=== PATIENT | male | born 2000 | race Caucasian/White ===

== ENCOUNTER 2024-11-20 22:38 | Observation (INO) | payer OTHER, SELFPAY ==
[2024-11-20 17:29] VITALS: BP 112/60; BMI 25.0
--- NOTE | 2024-11-20 17:44 | ED.GENMED ---
Addendum entered and electronically signed by Esteban Eldridge DO 11/20/24 21:45:
[facility]
[address] [place] [address]
[place] [address]

Patient Name: TEODORA MILIAN
Unit Number: [id number]
Patient
: 2000
Age: 23
Gender: M
Care Provider:
Room/Bed:
Location: EMR
Medical Records
Draft
History of Present Illness
General
Chief Complaint: Seizure
Time Seen by Provider: 11/20/24 17:28
Course
Orders/Labs/Results
Orders:
Orders
11/20/24 17:35
Electrocardiogram (*1) Urgent
Reason for Study: QTc Monitoring
EKG- Treatment ONCE
11/20/24 17:47
Complete Blood Count/With Diff Urgent
Comprehensive Metabolic Panel Urgent
Magnesium Urgent
11/20/24 18:45
CT Head W/o Iv Contrast Urgent
Comment:
Reason For Exam: SEIZURE
Abnormal Lab Results
11/20/24
17:47
RBC 4.48 L 10^6/uL
(4.70-6.10)
Hct 38.2 L %
(39.0-52.0)
Abs Immat Gran (auto) 0.1 H 10^3/uL
(0-0.05)
Immature Gran % 1.0 H %
(0-0.5)
Magnesium 2.4 H mg/dl
(1.6-2.3)
11/20/24 17:47
11/20/24 17:47
Vital Signs
Initial and Last Documented VS:
Initial Vital Signs
Temp Pulse Resp BP Pulse Ox
97.6 F 85 21 112/60 99
11/20/24 17:29 11/20/24 17:29 11/20/24 17:29 11/20/24 17:29 11/20/24 17:29
Last Documented Vital Signs
Temp Pulse Resp BP Pulse Ox
97.6 F 89 20 112/60 99
11/20/24 17:29 11/20/24 20:30 11/20/24 20:30 11/20/24 17:29 11/20/24 19:30
Update Note
Update Note:
9 PM, summary, workup noted here back to his baseline I do suspect he had a seizure perhaps from recent lorazepam use, no longer followed by [facility] neurology reviewed inpatient versus outpatient follow-up, child needs to go back on Ativan for dental
procedures, family also has a trip planned coming up, at this point I believe be prudent keep in the hospital asked neuro to see him in the morning consider EEG, monitor for any recurrent seizures
Original Note:
History of Present Illness
General
Chief Complaint: Seizure
Source: patient, family and ambulance crew
Exam Limitations: non verbal-adult, altered mental status and developmental stage
Time Seen by Provider: 11/20/24 17:28
Nursing documentation reviewed up to this point in time: agreed with
History of Present Illness
History of Present Illness:
23-year-old male history of autism seizures as a child, none recently for for past 3 weeks has had multiple doses of Ativan 2 mg for dental work has also been on Zithromax for an infection which is chronic and Zofran, today dad heard a heard a
noise, child was in his bed dad lowered him to the ground child was seizing for a day or 2 EMS found him postictal, blood sugar of 200 mom states he is a little bit off from his baseline but does not typically communicate a lot, does have a bite on
the right side of his tongue no bowel or bladder incontinence
Phy Exam
Physical Exam
Physical Exam:
Physical Exam
General: Postictal special-needs male
Neck: Tongue bite on the right
Heart: s1/s2 regular rate and rhythm, no murmur. equal radial pulses.
Lungs: no acute respiratory distress. clear bilaterally
Abdomen: Nontender
Neuro: Nonverbal moves all extremities
Skin: no rash
Psychiatric: Cooperative
Extremities: no edema.
Course
Orders/Labs/Results
Orders:
Orders
11/20/24 17:35
Electrocardiogram (*1) Urgent
Reason for Study: QTc Monitoring
CT Head W/o Iv Contrast Urgent
Comment:
Reason For Exam: SEIZURE
EKG- Treatment ONCE
11/20/24 17:39
CT Cervical Spine W/o Iv Contr Urgent
Comment:
Reason For Exam: FALL
11/20/24 17:47
Complete Blood Count/With Diff Urgent
Comprehensive Metabolic Panel Urgent
Magnesium Urgent
Abnormal Lab Results
11/20/24
17:47
RBC 4.48 L 10^6/uL
(4.70-6.10)
Hct 38.2 L %
(39.0-52.0)
Abs Immat Gran (auto) 0.1 H 10^3/uL
(0-0.05)
Immature Gran % 1.0 H %
(0-0.5)
Magnesium 2.4 H mg/dl
(1.6-2.3)
11/20/24 17:47
11/20/24 17:47
Vital Signs
Initial and Last Documented VS:
Initial Vital Signs
Temp Pulse Resp BP Pulse Ox
97.6 F 85 21 112/60 99
11/20/24 17:29 11/20/24 17:29 11/20/24 17:29 11/20/24 17:29 11/20/24 17:29
Last Documented Vital Signs
Temp Pulse Resp BP Pulse Ox
97.6 F 85 21 112/60 99
11/20/24 17:29 11/20/24 17:29 11/20/24 17:29 11/20/24 17:29 11/20/24 17:29
MDM/Problems Addressed
Differential Diagnosis Includes:
Sounds like a seizure, could be due to epilepsy, benzo withdrawal, arrhythmia, perhaps Zofran and Zithromax
MDM/Problems Addressed:
Seizure
Chronic conditions affecting care:
Autism
Ativan use
*Radiology
Radiology exam reviewed: preliminary read by ED provider
*Pulse Oximetry
Patient hypoxic: no
*Critical Care Note
Total Time (30-74mins, 75-104mins- exclusive of procedures): Not Applicable
Update Note
Update Note:
6:25 PM patient resting comfortably history confirms her father who witnessed the episode sounds like a seizure, there is no direct trauma he was placed down the bed advised that, will cancel CT cervical spine
Child did have a suspected seizure earlier in life underwent EEGs and MRI not on antiepileptics
ED Attending Note
-
Portions of this chart may have been created with voice recognition software.� Occasional wrong word or��sound alike� substitutions may have occurred due to the inherent limitations of voice recognition software.
Discharge Plan
Interventions
Interventions:
*Risk Screen - Suicide Last Done: 11/20/24 17:29
*General Assessment Last Done: 11/20/24 17:29
*Neglect/Abuse Screening Last Done: 11/20/24 17:29
*ED- Fall Risk Assessment Last Done: 11/20/24 17:29
*ED COVID-19 Vaccine History Last Done: 11/20/24 17:29
Discharge Date and Time
Print Language: SETSWANA
[2024-11-20 17:57] LABS: % Basophils 0.3 % (0-2); % Eosinophils 1.3 % (0-6); % Lymphocytes 30.4 % (20.5-51.1); % Monocytes 7.3 % (1.7-9.3); % Neutrophils 59.7 % (42.2-75.2); Absolute Eosinophils 0.1 10^3/uL (0-0.7); Absolute Immature Granulocytes 0.1 10^3/uL (0-0.05); Absolute Lymphocytes 2.1 10^3/uL (1.2-3.4); Absolute Monocytes 0.5 10^3/uL (0.1-0.6); Absolute Neutrophils 4.1 10^3/uL (1.4-6.5); Hematocrit 38.2 % (39.0-52.0); Hemoglobin 13.7 g/dL (13.0-18.0); Mean Corp Hgb Conc. 35.9 g/dL (33.0-37.0); Mean Corpuscular Hgb 30.6 pg (27.0-31.0); Mean Corpuscular Volume 85.3 fL (80.0-94.0); Mean Platelet Volume 9.9 fL (7.4-10.4); Nucleated Red Blood Cells % 0 % (-); Platelet Count 141 10^3/uL (130-400); Red Blood Cell Count 4.48 10^6/uL (4.70-6.10); Red Cell Dist. Width 11.9 % (11.5-14.5); White Blood Cell Count 6.9 10^3/uL (4.8-10.8)
[2024-11-20 18:23] LABS: ALT (SGPT) 24 U/L (0-50); AST (SGOT) 27 U/L (17-59); Albumin 4.9 g/dl (3.5-5.0); Alkaline Phosphatase 94 U/L (38-126); Blood Urea Nitrogen 15 mg/dl (9-20); Calcium 9.7 mg/dl (8.4-10.2); Carbon Dioxide 27 mmol/L (22-30); Chloride 102 mmol/L (98-107); Estimated Creatinine Clearance > 125 ml/min; Glucose 79 mg/dl (70-99); Magnesium 2.4 mg/dl (1.6-2.3); Potassium 3.8 mmol/L (3.5-5.1); Sodium 141 mmol/L (135-145); Total Bilirubin 0.4 mg/dl (0.2-1.3); eGFR > 60.00
--- NOTE | 2024-11-20 20:56 | ED.GENMED ---
History of Present Illness
General
Chief Complaint: Seizure
Time Seen by Provider: 11/20/24 17:28
Course
Orders/Labs/Results
Orders:
Orders
11/20/24 17:35
Electrocardiogram (*1) Urgent
Reason for Study: QTc Monitoring
EKG- Treatment ONCE
11/20/24 17:47
Complete Blood Count/With Diff Urgent
Comprehensive Metabolic Panel Urgent
Magnesium Urgent
11/20/24 18:45
CT Head W/o Iv Contrast Urgent
Comment:
Reason For Exam: SEIZURE
Abnormal Lab Results
11/20/24
17:47
RBC 4.48 L 10^6/uL
(4.70-6.10)
Hct 38.2 L %
(39.0-52.0)
Abs Immat Gran (auto) 0.1 H 10^3/uL
(0-0.05)
Immature Gran % 1.0 H %
(0-0.5)
Magnesium 2.4 H mg/dl
(1.6-2.3)
11/20/24 17:47
11/20/24 17:47
Vital Signs
Initial and Last Documented VS:
Initial Vital Signs
Temp Pulse Resp BP Pulse Ox
97.6 F 85 21 112/60 99
11/20/24 17:29 11/20/24 17:29 11/20/24 17:29 11/20/24 17:29 11/20/24 17:29
Last Documented Vital Signs
Temp Pulse Resp BP Pulse Ox
97.6 F 89 20 112/60 99
11/20/24 17:29 11/20/24 20:30 11/20/24 20:30 11/20/24 17:29 11/20/24 19:30
Update Note
Update Note:
9 PM, summary, workup noted here back to his baseline I do suspect he had a seizure perhaps from recent lorazepam use, no longer followed by [facility] neurology reviewed inpatient versus outpatient follow-up, child needs to go back on Ativan for dental
procedures, family also has a trip planned coming up, at this point I believe be prudent keep in the hospital asked neuro to see him in the morning consider EEG, monitor for any recurrent seizures
ED Attending Note
-
Portions of this chart may have been created with voice recognition software.� Occasional wrong word or��sound alike� substitutions may have occurred due to the inherent limitations of voice recognition software.
Discharge Plan
Departure
Patient Disposition: Admit
Date of Disposition: 11/20/24
Time of Disposition: 20:57
Presentation/result/management discussed w/ accepting MD/DO: Hospitalist
Patient with high blood pressure during this ER visit?: No
Condition: Good
Discharge Problem:
Seizure
Referrals:
Boone Campoverde DO [Family Provider] -
Interventions
Interventions:
*Risk Screen - Suicide Last Done: 11/20/24 17:29
*General Assessment Last Done: 11/20/24 17:29
*Neglect/Abuse Screening Last Done: 11/20/24 17:29
*ED- Fall Risk Assessment Last Done: 11/20/24 17:29
*ED COVID-19 Vaccine History Last Done: 11/20/24 17:29
ED- Cardiac Assessment Last Done: 11/20/24 17:30
ED- Neurological Assessment Last Done: 11/20/24 17:30
ED- Pulmonary Assessment Last Done: 11/20/24 17:30
Discharge Date and Time
Print Language: CHADIAN
[2024-11-20 21:21] VITALS: BP 121/77
--- NOTE | 2024-11-20 22:25 | HPS.HSE ---
Family Physician
-
Family Physician: Boone Campoverde
Chief Complaint
-
Seizure activity
History of Present Illness
Patient is a 23y M with PMH significant for non-verbal autism with catatonia who presents to ED for evaluation after witnessed seizure activity at home. History obtained from parents at the bedside. Patient has reportedly been feeling fairly
well of late. had a usual Friday today including going to the gym, out to breakfast, etc. This afternoon, patient went up to his room and his father heard him cry out. Father went upstairs and found patient on his bed appearing rigid / shaking
with drool / emesis from the corner of his mouth. Father lowered the patient to the floor / onto his side. There was no fall / injury / trauma. EMS was called. Father states that the initial episodes lasted about 1-2 minutes. Patient gradually
became more alert while en route to the hospital. Here in the ED, family states that he seems at baseline.
Patient had an isolated episode of questionable seizure when he was 7yo.
He was later evaluated for eyelid fluttering, etc and as briefly on AEDs for suspected seizure activity. This was later diagnosed as autism-related catatonia.
Patient was treated for this condition with Ativan x 3 years before being weaned off. He has not been on regular Ativan dosing for at least 2 years.
Patient has had EEGs done in the past - most recently in 2019. These were all reportedly unremarkable.
Over the past 3 weeks, patient has required significant dental work. He has been given Ativan prior to these appointments - 2mg dose at a time.
He has received 5 doses in the past 3 weeks - most recent doses were last Friday, this Friday and this Friday.
Parents note that they also added N-acetylcysteine to his supplement regimen (about 3 days ago). No other new medications.
Medical History
Past Medical History
Past Medical History: Reports Other
Additional Past Medical History:
Non-Verbal Autism with Catatonia
Past Surgical History: Reports Other
Additional Past Surgical History:
Dental procedures - no other surgeries
Social History
Tobacco: Non-smoker
Alcohol: None
Drug: None
Living: With Family
Family History
Family History: Not pertinent
Allergies / Home Medications
Allergies reflects when Allergies were last updated in [facility]
Home Medications with original date entered in [facility]
Allergy/Medication List:
Allergies
Allergy/AdvReac Type Severity Reaction Status Date / Time
gluten Allergy Unknown Verified 11/20/24 17:45
Milk Containing Products Allergy Unknown Verified 11/20/24 17:45
(Dairy)
Home Medications
Lactobacillus acidophilus-Bifidobac.animalis 2.5 billion cell capsule (Daily Probiotic) 1 cap PO BID 11/20/24
acetylcysteine 600 mg capsule 600 mg PO DAILY 11/20/24
ascorbic acid (vitamin C) 1,000 mg tablet (Vitamin C) 1 g PO DAILY 11/20/24
ascorbic acid (vitamin C) 500 mg tablet (Vitamin C) 500 mg PO DAILY 11/20/24
atovaquone 250 mg-proguanil 100 mg tablet (Malarone) 2 tab PO DAILY 11/20/24
azithromycin 250 mg tablet 250 mg PO DAILY 11/20/24
cholecalciferol (vitamin D3) 125 mcg (5,000 unit) tablet (Vitamin D3) 5,000 unit PO DAILY 11/20/24
curcumin-phosphatidylcholine 500 mg capsule 500 mg PO DAILY 11/20/24
lorazepam 1 mg tablet (Ativan) 1 mg PO PRN PRN dental procedure 11/20/24
lysine 500 mg tablet (L-Lysine) 500 mg PO DAILY 11/20/24
magnesium citrate 100 mg capsule 100 mg PO DAILY 11/20/24
magnesium glycinate 100 mg PO DAILY 11/20/24
melatonin 1 mg tablet 1 mg PO HS 11/20/24
minerals 1 tab PO BID 11/20/24
multivitamin 1 tab PO BID 11/20/24
naltrexone 4.5 mg capsule 4.5 mg PO DAILY 11/20/24
sennosides 8.6 mg tablet (senna) 8.6 mg PO DAILY PRN constipation 11/20/24
sertraline 50 mg tablet (Zoloft) 75 mg PO DAILY 11/20/24
Review of Systems
-
History Source: Family
A 12 point ROS was completed and negative except as noted: Yes
Constitutional: Reports Fatigue; Denies Fever or Chills
Respiratory: Denies Cough or Trouble Breathing
Cardiac: Denies Chest Pain or Palpitations
Abdomen/GI: Denies Abdominal Pain, Nausea, Vomiting or Diarrhea
: Denies Flank Pain or Bleeding
Musculoskeletal: Denies Joint Pain or Edema
Neurological: Reports Other (Seizure activity); Denies Dizzy or Headache
Physical Exam
Vital Signs
Vital Signs
Temp Pulse Resp BP Pulse Ox
98.4 F 85 15 121/77 99
11/20/24 21:21 11/20/24 21:21 11/20/24 21:21 11/20/24 21:21 11/20/24 21:21
Physical Exam
General: Other (23y M resting comfortably in no distress.)
HEENT: Moist mucous membranes and PERRLA
Respiratory: Clear; No Wheezes, Rales or Rhonchi
Cardiac: S1/S2 and Regular Rhythm; No Murmur
GI: Soft, Non Tender, Non Distended and Normal Bowel Sounds
Musculoskeletal: No Edema
Neuro: Awake, Alert and Nonfocal/grossly intact
Laboratory Results
-
11/20/24 17:47
11/20/24 17:47
Laboratory Results
Total Bilirubin 0.4 mg/dl (0.2-1.3) 11/20/24 17:47
AST 27 U/L (17-59) 11/20/24 17:47
ALT 24 U/L (0-50) 11/20/24 17:47
Alkaline Phosphatase 94 U/L (38-126) 11/20/24 17:47
Impression/Plan
-
A/P: Patient is a 23y M with PMH significant for autism with catatonia who presents to ED for evaluation of witnessed seizure-like activity.
Seizure Activity
Non-Verbal Autism with Catatonia
- Observe overnight for further evaluation and treatment.
- Monitor for any new / recurrent symptoms.
- Ativan IV PRN for any recurrent seizures.
- Neuro evaluation for additional recommendations.
- EEG in AM.
- Likely multifactorial - ? few doses of Ativan in the past 3 weeks would be enough alone to elicit 'withdrawal' - especially with prior history of 3 years of chronic therapy and no issues at that time.
- On multiple supplements as well as Azithro / Malarone - newest supplement NAC. Will hold all acutely.
DVT Prophylaxis: SCDs
Code Status: Full
[2024-11-20 23:30] VITALS: BP 119/77; BMI 24.0
--- NOTE | 2024-11-21 01:12 | PTCARENOTE ---
11/20 at 2333- Received patient from ED via stretcher with mother at bedside; Patient admitted for seizure activity, observation services.
Telemetry order> NSR on monitor, strip placed in chart. VSS afebrile, HR 62, RR 18, BP 119/77, pox 97% room air. #20 LAC IV intact. Gait steady.
Patient Non- Verbal Autism (w/ Catatonia) Seizure precautions in place. Neuro checks ordered Q4H- refer to worklist. Medications and plan of care reviewed by this RN and mother. Plan for EEG in AM. Both parents will be staying overnight. Linens and
pillows provided. Call weeks within reach.
[2024-11-21 03:49] VITALS: BP 119/64
[2024-11-21 07:05] VITALS: BP 113/65
[2024-11-21 07:54] LABS: Blood Urea Nitrogen 13 mg/dl (9-20); Calcium 9.6 mg/dl (8.4-10.2); Carbon Dioxide 28 mmol/L (22-30); Chloride 106 mmol/L (98-107); Estimated Creatinine Clearance > 125 ml/min; Glucose 88 mg/dl (70-99); Sodium 143 mmol/L (135-145); eGFR > 60.00
--- NOTE | 2024-11-21 08:14 | CON.NEURO ---
Consultation
Order
Date of Consultation: 11/21/24
Requesting Provider: Matthew Gordon DO
Reason for Consult: Seizure
Neurology Consultation Note.
HPI: This is a 23-year-old man who presented to [facility] on seizure 11/20/2024 with a spell.
The event occurred around 3:30-4:00 PM after the patient had returned from his usual gym routine and breakfast. The patient was found in his bed with his head back arching, eyes open, and drooling. The episode lasted approximately one minute. There
was no reported cyanosis, pallor. The patient had no recent illness, fever, or other symptoms prior to the event.
The patient has a history of a questionable seizure at age 7 while at school, which prompted an EEG and MRI workup at that time. No antiepileptic medications were prescribed following that incident. Since 2018, the patient has experienced a
progressive slowdown in his movements and activities, with concerns about weight loss and prolonged task completion arising in 2019. He began seeing neurologists at this time, with initial suspicions of seizures. EEG studies were done and reportedly
unremarkable. The patient was briefly treated with Depakote but was later weaned off.
The patient has been experiencing recurrent eye flutter episodes. These episodes initially 'improved with doxycycline' treatment for Lyme disease but have since recurred with increasing frequency.
The patient was diagnosed with catatonia in 2019 and was treated with Ativan for 3.5 years, which was slowly tapered over 1.5 years.
At baseline Rick is not fluent, can perform basic self-care tasks with prompting and 'moves slowly'.
ER VS: 112/60, 89, afebrile.
EKG:pending
PDMP:none in [place]
Labs: Normal sodium, creatinine, CBC, magnesium�2.4.
CT head wo contrast�unremarkable
MAR: none
PMH: autistic catatonia, vitiligo, allergic rhinitis, JUAN, vitamin D deficiency, babesiosis is on azithromycin and Atovaquone -proguanil( following with a functional medicine)
SH: Lives with family, independent in ambulation
FH: Paternal cousin has autism
All: Gluten
ROS: Unable due to encephalopathy
General: Well developed. In no acute distress.
Cardio: Regular rate and rhythm without murmur. Extremities are without cyanosis or edema.
Neuro:
Mental Status: Awake, no eye contact. Oriented to name. (Reportedly able to read, write). Follows simple requests with prompting intermittently. High-pitched voice.
Cranial Nerves: Orthophoric primary gaze pupils are equally round and reactive to light. Horizontal EOMs full. Blinks to threat bilaterally. No facial weakness.
Motor: Normal motor tone. All limbs antigravity
Reflexes: Negative grasp, no hyperreflexia
Sensory: Was not done
Coordination: No tremors myoclonic movements
Gait: Normal stance, base
Assessment and Plan:
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
II. Regressive autism
III. History of catatonia
-Seizure precautions
-Avoid medications known to lower seizure threshold
-Please check TFTs, CK, urine tox
-Continue Keppra 500 mg twice daily
-Brain MRI without juan (epilepsy protocol)
-Routine EEG (can be done as outpatient)
I personally reviewed all radiology and labs along with past medical records pertinent to current medical problems. Total time spent in patient care is 60 minutes.
Thank you for allowing us to participate in the care of this patient. We will continue to follow. Please do not hesitate to contact us with any questions or concerns.
Subjective/Objective
Subjective Data
Date of Service: November 21, 2024
Objective Data
Vital Signs
Temp Pulse Resp BP Pulse Ox
36.8 C 61 16 119/64 97
11/21/24 03:49 11/21/24 03:49 11/21/24 03:49 11/21/24 03:49 11/21/24 03:49
Lab Results
11/20/24 17:47
11/21/24 06:59
Sodium 143 mmol/L (135-145) 11/21/24 06:59
Potassium 4.0 mmol/L (3.5-5.1) 11/21/24 06:59
BUN 13 mg/dl (9-20) 11/21/24 06:59
Glucose 88 mg/dl (70-99) 11/21/24 06:59
Calcium 9.6 mg/dl (8.4-10.2) 11/21/24 06:59
Patient Allergies
gluten Allergy (Verified 11/20/24 17:45)
Unknown
Milk Containing Products (Dairy) Allergy (Verified 11/20/24 17:45)
Unknown
Medications
-
Active Medications
Generic Name Dose Route Start Last Admin
Trade Name Freq PRN Reason Stop Dose Admin
Acetaminophen 650 mg 11/20/24 23:34
Acetaminophen 325 Mg Tablet PO 12/18/24 23:33
Q4HPRN PRN
Mild Pain / Temp > 101
Lorazepam 2 mg 11/20/24 23:34
Lorazepam 2 Mg/Ml Vial IV 12/18/24 23:33
Q4HPRN PRN
Seizure activity
Sodium Chloride 1 ml 11/20/24 23:44
Nss (Pf) 10 Ml Vial For Ativan 2 Mg Dose IV 12/18/24 23:43
Q4HPRN PRN
IV LORAZEPAM DILUTION
Home Medications
�Medication �Instructions �Recorded
Lactobacillus 1 cap PO BID 11/20/24
acidophilus-Bifidobac.animalis 2.5
billion cell capsule (Daily
Probiotic)
acetylcysteine 600 mg capsule 600 mg PO DAILY 11/20/24
ascorbic acid (vitamin C) 1,000 mg 1 g PO DAILY 11/20/24
tablet (Vitamin C)
ascorbic acid (vitamin C) 500 mg 500 mg PO DAILY 11/20/24
tablet (Vitamin C)
atovaquone 250 mg-proguanil 100 mg 2 tab PO DAILY 11/20/24
tablet (Malarone)
azithromycin 250 mg tablet 250 mg PO DAILY 11/20/24
cholecalciferol (vitamin D3) 125 5,000 unit PO DAILY 11/20/24
mcg (5,000 unit) tablet (Vitamin
D3)
curcumin-phosphatidylcholine 500 500 mg PO DAILY 11/20/24
mg capsule
lorazepam 1 mg tablet (Ativan) 1 mg PO PRN PRN dental procedure 11/20/24
lysine 500 mg tablet (L-Lysine) 500 mg PO DAILY 11/20/24
magnesium citrate 100 mg capsule 100 mg PO DAILY 11/20/24
magnesium glycinate 100 mg PO DAILY 11/20/24
melatonin 1 mg tablet 1 mg PO HS 11/20/24
minerals 1 tab PO BID 11/20/24
multivitamin 1 tab PO BID 11/20/24
naltrexone 4.5 mg capsule 4.5 mg PO DAILY 11/20/24
sennosides 8.6 mg tablet (senna) 8.6 mg PO DAILY PRN constipation 11/20/24
sertraline 50 mg tablet (Zoloft) 75 mg PO DAILY 11/20/24
Vital Signs and Labs
-
Vital Signs and Labs:
Vital Signs
Temp Pulse Resp BP Pulse Ox
36.8 C 61 16 119/64 97
11/21/24 03:49 11/21/24 03:49 11/21/24 03:49 11/21/24 03:49 11/21/24 03:49
Lab Results
11/20/24 17:47
11/21/24 06:59
Sodium 143 mmol/L (135-145) 11/21/24 06:59
Potassium 4.0 mmol/L (3.5-5.1) 11/21/24 06:59
BUN 13 mg/dl (9-20) 11/21/24 06:59
Glucose 88 mg/dl (70-99) 11/21/24 06:59
Calcium 9.6 mg/dl (8.4-10.2) 11/21/24 06:59
Medications
-
Medications:
Generic Name Dose Route Start Last Admin
Trade Name Freq PRN Reason Stop Dose Admin
Acetaminophen 650 mg 11/20/24 23:34
Acetaminophen 325 Mg Tablet PO 12/18/24 23:33
Q4HPRN PRN
Mild Pain / Temp > 101
Lorazepam 2 mg 11/20/24 23:34
Lorazepam 2 Mg/Ml Vial IV 12/18/24 23:33
Q4HPRN PRN
Seizure activity
Sodium Chloride 1 ml 11/20/24 23:44
Nss (Pf) 10 Ml Vial For Ativan 2 Mg Dose IV 12/18/24 23:43
Q4HPRN PRN
IV LORAZEPAM DILUTION
Home Medications
-
Home Medications
Lactobacillus acidophilus-Bifidobac.animalis 2.5 billion cell capsule (Daily Probiotic) 1 cap PO BID 11/20/24
acetylcysteine 600 mg capsule 600 mg PO DAILY 11/20/24
ascorbic acid (vitamin C) 1,000 mg tablet (Vitamin C) 1 g PO DAILY 11/20/24
ascorbic acid (vitamin C) 500 mg tablet (Vitamin C) 500 mg PO DAILY 11/20/24
atovaquone 250 mg-proguanil 100 mg tablet (Malarone) 2 tab PO DAILY 11/20/24
azithromycin 250 mg tablet 250 mg PO DAILY 11/20/24
cholecalciferol (vitamin D3) 125 mcg (5,000 unit) tablet (Vitamin D3) 5,000 unit PO DAILY 11/20/24
curcumin-phosphatidylcholine 500 mg capsule 500 mg PO DAILY 11/20/24
lorazepam 1 mg tablet (Ativan) 1 mg PO PRN PRN dental procedure 04/05/25
lysine 500 mg tablet (L-Lysine) 500 mg PO DAILY 11/20/24
magnesium citrate 100 mg capsule 100 mg PO DAILY 11/20/24
magnesium glycinate 100 mg PO DAILY 11/20/24
melatonin 1 mg tablet 1 mg PO HS 11/20/24
minerals 1 tab PO BID 11/20/24
multivitamin 1 tab PO BID 11/20/24
naltrexone 4.5 mg capsule 4.5 mg PO DAILY 11/20/24
sennosides 8.6 mg tablet (senna) 8.6 mg PO DAILY PRN constipation 11/20/24
sertraline 50 mg tablet (Zoloft) 75 mg PO DAILY 11/20/24
--- NOTE | 2024-11-21 08:16 | W.PN.HOSP.TC ---
Today's Communication/Plan
-
see bold
Assessment / Plan
Assessment / Plan
23y M with PMH significant for autism with catatonia who presents to ED for evaluation of witnessed seizure-like activity.
Gen: NAD, awake and alert
Eyes: EOMI, PERRLA, no scleral icterus.
Neck: supple.
CV: RRR, +S1/S2, no m/r/g.
Resp: CTAB, no rales, wheezes, or rhonchi.
Abd: +BS, soft, NT, ND
Skin: No rashes.
Neuro: CN 2-12 intact, non-focal.
Psych: flat affect
Seizure Activity
Non-Verbal Autism with Catatonia
-Recent dental work with multiple doses of Ativan which could potentially elicit benzodiazepine withdrawal. Also on multiple supplements as well as Azithro/Malarone. NAC is most recent supplement which is on hold.
-Overall, I recommend that the patient stop all of the supplements going forward
-neuro c/s, case discussed with neuro
-Ativan IV PRN for any recurrent seizures.
-check EEG/MRI brain
-start Keppra 500mg IV Q12H
Patient's parents updated at bedside.
FULL/SCDs
Anticipated Discharge: Within 24 hours
Subjective/Interval History
-
Date of Service: November 21, 2024
Patient gives a thumbs up when asked how he is feeling.
Objective Data
-
Labs:
Laboratory Results
11/21/24
06:59
Sodium 143
Potassium 4.0
Chloride 106
Carbon Dioxide 28
BUN 13
Creatinine 0.7
Glucose 88
Calcium 9.6
Vital Signs:
Vital Signs
Temp Pulse Resp BP Pulse Ox
98.2 F 61 16 119/64 97
11/21/24 03:49 11/21/24 03:49 11/21/24 03:49 11/21/24 03:49 11/21/24 03:49
I&O
11/20/24 11/21/24 11/22/24
06:59 06:59 06:59
Intake Total 480 / 480
Balance 480 / 480
[2024-11-21 08:22] LABS: TSH Reflex To Free T4 0.36 uIU/ml (0.47-4.68)
[2024-11-21 08:50] LABS: Free T4 0.97 ng/dl (0.78-2.19)
[2024-11-21] MEDS: ZOLOFT 75 MG PO (10:34)
[2024-11-21] MEDS: KEPPRA 500 MG IV ×2 (10:35→20:56)
[2024-11-21 11:05] VITALS: BP 108/73
--- NOTE | 2024-11-21 13:21 | CM ---
Patient seen at bedside with father also present. Patient sleeping. Patient father indicated that he did not want CM to wake patient. Patient father indicated mother had gone home for clothing. CM reviewed OBS form and provided patient father with
copies to review with patient mother. Patient lives in a 2 story home with no DME. Normally patient walks independently. Patient PCP is Dr. Orozco and they use the [facility]. Patient father stated they have been working to start the
community waiver and that patient was approved for 12 hours a week, they hope to start the program in approx 2 weeks. Patient family plan is for patient to go home with no needs at this time vs home with VN. CM will continue to follow for discharge
planning needs.
Plan;home with no needs vs home with VN
[2024-11-21 15:05] VITALS: BP 101/69
[2024-11-21 16:15] LABS: Amphetamines Negative (Negative); Barbiturates Negative (Negative); Benzodiazepines Negative (Negative); Buprenorphine Negative (Negative); Cocaine Negative (Negative); Marijuana Negative (Negative); Methadone Negative (Negative); Methamphetamines Negative (Negative); Opiates Negative (Negative); Phencyclidine Negative (Negative); Tricyclic Antidepressants Negative (Negative)
--- NOTE | 2024-11-21 17:38 | PTCARENOTE ---
Patient with no seizure activity noted this shift, ambulatory in room/OOB to chair with assistance of parents at bedside. Neuro checks WNL, patient nonverbal with catatonia at baseline. Parents given printout of AM labs and educational packet on
Keppra for seizure prevention. AM labs and urine tox screen ordered per neuro. Patient for EEG in AM, parents updated on plan of care.
[2024-11-21 19:54] VITALS: BP 118/75
[2024-11-21 22:52] VITALS: BP 111/69
[2024-11-22 03:10] VITALS: BP 105/65
--- NOTE | 2024-11-22 07:18 | W.PN.HOSP.TC ---
Today's Communication/Plan
-
d/c
Assessment / Plan
Assessment / Plan
23y M with PMH significant for autism with catatonia who presents to ED for evaluation of witnessed seizure-like activity.
Gen: NAD, awake and alert
Eyes: EOMI, PERRLA, no scleral icterus.
Neck: supple.
CV: RRR, +S1/S2, no m/r/g.
Resp: CTAB, no rales, wheezes, or rhonchi.
Abd: +BS, soft, NT, ND
Skin: No rashes.
Neuro: CN 2-12 intact, non-focal.
Psych: flat affect
MRI brain: No acute intracranial abnormality noted.
Seizure Activity
Non-Verbal Autism with Catatonia
-Recent dental work with multiple doses of Ativan which could potentially elicit benzodiazepine withdrawal. Also on multiple supplements as well as Azithro/Malarone. NAC is most recent supplement which is on hold.
-Overall, I recommend that the patient stop all of the supplements going forward
-neuro following
-Ativan IV PRN for any recurrent seizures
-EEG brain can be cone outpt
-cont Keppra 500mg IV Q12H (convert PO on d/c)
Patient's parents updated extensively at bedside.
FULL/SCDs
Total time spent on d/c = 31 min. This included today's physical exam, progress note, review of laboratory and diagnostic data, preparation of discharge documents and prescriptions, and discussions about the pt's hospital course and discharge plan
with the patient and other medical collections representative involved in the patient's care.
Anticipated Discharge: Today
Subjective/Interval History
-
Date of Service: November 22, 2024
Patient gives a thumbs up this morning (nonverbal).
Objective Data
-
Vital Signs:
Vital Signs
Temp Pulse Resp BP Pulse Ox
98.0 F 68 16 105/65 97
11/22/24 03:10 11/22/24 03:10 11/22/24 03:10 11/22/24 03:10 11/22/24 03:10
I&O
11/21/24 11/22/24 11/23/24
06:59 06:59 06:59
Intake Total 480 / 480 1760 / 1760
Output Total 250 / 250
Balance 480 / 480 1510 / 1510
[2024-11-22 07:30] VITALS: BP 99/59
[2024-11-22] MEDS: ZOLOFT 75 MG PO (08:24)
[2024-11-22] MEDS: KEPPRA 500 MG IV (08:25)
[2024-11-22 08:55] LABS: Free T3 4.12 pg/ml (2.77-5.27)
--- NOTE | 2024-11-22 09:09 | CM ---
CM spoke with patient's mother via phone; VN offered; mother declined; father will transport patient home
Plan: Discharge to home, no needs
--- NOTE | 2024-11-22 13:03 | W.DCSUMMARY ---
Discharge Summary
Discharge Data
Date of Admission: 11/20/24
Date of Discharge: 11/22/24
-
Pending Results: No
Hospital Course
Primary diagnoses:
Seizure
Secondary diagnoses:
Non-Verbal Autism with Catatonia
Consultants:
Neurology
Imaging:
MRI brain: No acute intracranial abnormality noted.
Hospital course: 23-year-old male who presented with seizure activity as outlined in the H&P done on admission. The patient had had recent dental work with multiple doses of Ativan which could potentially elicit benzodiazepine withdrawal. He was
also on multiple supplements as well as Azithro/Malarone. NAC was the most recent supplement added. His supplements were placed on hold. He was seen in consultation by neurology. He was initiated on Keppra. His MRI of the brain was unremarkable
as above. He will need an EEG after discharge. He will continue on Keppra on discharge. Overall, I recommend that the patient stop all of the supplements going forward.
Discharge Plan
-
Patient Disposition: Home (Routine Discharge)
Discharge Diagnosis/Procedures: Seizure
Condition: Good
Diet: No restrictions
Activity: Other activity
Additional Activity: as prior to admission
Driving Restrictions: No driving
Referrals:
Danni Gunderson MD [Active] - in four to six weeks (seizure)
Boone Campoverde DO [Family Provider] - in less than 1 week
Prescriptions:
New
levetiracetam [Keppra] 500 mg tablet
500 mg PO BID Qty: 60 0RF
Continued
multivitamin Tablet
1 tab PO BID
sennosides [senna] 8.6 mg Tablet
8.6 mg PO DAILY PRN (Reason: constipation)
ascorbic acid (vitamin C) [Vitamin C] 1,000 mg Tablet
1 g PO DAILY
Rx Instructions:
afternoon
ascorbic acid (vitamin C) [Vitamin C] 500 mg Tablet
500 mg PO DAILY
Rx Instructions:
morning
lorazepam [Ativan] 1 mg Tablet
1 mg PO PRN PRN (Reason: dental procedure)
Rx Instructions:
Patient took two mg on friday
lysine [L-Lysine] 500 mg Tablet
500 mg PO DAILY
sertraline [Zoloft] 50 mg Tablet
75 mg PO DAILY
minerals Tablet
1 tab PO BID
melatonin 1 mg Tablet
1 mg PO HS
acetylcysteine 600 mg Capsule
600 mg PO DAILY
cholecalciferol (vitamin D3) [Vitamin D3] 125 mcg (5,000 unit) Tablet
5,000 unit PO DAILY
magnesium citrate 100 mg Capsule
100 mg PO DAILY
Daily Probiotic 2.5 billion cell Capsule
1 cap PO BID
magnesium glycinate 100 mg magnesium Capsule
100 mg PO DAILY
curcumin-phosphatidylcholine 500 mg Capsule
500 mg PO DAILY
Discontinued
azithromycin 250 mg Tablet
250 mg PO DAILY
atovaquone-proguanil [Malarone] 250-100 mg Tablet
2 tab PO DAILY
naltrexone 4.5 mg Capsule
4.5 mg PO DAILY
Discharge Orders:
Discharge Patient (As Directed); Ordered 11/22/24
Ordered By: Charlie Sanchez
Discharge Date and Time
Discharge Date/Time: 11/22/24 10:48
Print Language: NAURUAN
== END 2024-11-22 10:48 | disposition home or self-care (01) ==
LOC: 2 NORTH 22:38
PROVIDERS: ADMITTING PHYSICIAN Hospitalist; ATTENDING PHYSICIAN Internal Medicine; CONSULT PHYSICIAN Psychiatry & Neurology Neurology; EMERGENCY PHYSICIAN Emergency Medicine; FAMILY PHYSICIAN Family Medicine
DX: R56.9 Unspecified convulsions (principal); R41.82 Altered mental status, unspecified; F84.0 Autistic disorder; F06.1 Catatonic disorder due to known physiological condition; F41.1 Generalized anxiety disorder; E55.9 Vitamin D deficiency, unspecified; L80 Vitiligo; J30.9 Allergic rhinitis, unspecified; R45.89 Other symptoms and signs involving emotional state; Z79.899 Other long term (current) drug therapy; Z91.02 Food additives allergy status; Z91.011 Allergy to milk products
CPT/HCPCS: 70450; 70551; 80048; 80053; 80306; 83735; 84439; 84443; 84481; 85025; 99285; G0378

== ENCOUNTER → 2025-02-28 11:10 | Outpatient (REF) | payer OTHER, SELFPAY ==
--- NOTE | 2025-03-02 13:59 | EEG.RPT ---
Electroencephalogram Report
Recording
Date of EE02/28/25
Type of EEG: Routine
Length of EEG recordin minutes
Done with Video Recording: Yes
Patient Status: Inpatient
Recording Conditions: Awake, Drowsy and Asleep
Hyperventilation Performed: No
Photic Stimulation Performed: Yes
Report
GREATER THAN 1 HOUR EEG INTERPRETATION:
Unremarkable EEG for age
CLINICAL CORRELATION:
A normal EEG does not rule out a diagnosis of epilepsy. If clinical suspicion for seizure persists, a prolonged recording may be warranted.
Clinical correlation is advised.
METHODS:
A 21 channel digitized electroencephalogram (EEG) was performed using the 10/20 international system of electrode placement and one-lead of ECG recorded. The [employer] quantitative EEG system was utilized.
ELECTROENCEPHALOGRAPHER IMPRESSION(S):
Quality of study
Good
Background
There was an unremarkable anterior-posterior voltage gradient of alpha frequency.
With eye opening the background activity changed to a low voltage mixture of frequencies.
There were no significant asymmetries of background activity noted.
Sleep
Drowsiness present
Stage 1 present
Stage 2 present
Photic Stimulation
No activation
ECG
Normal sinus rhythm
== END ==
LOC: EEG 11:10
PROVIDERS: ATTENDING PHYSICIAN Nurse Practitioner Adult Health; FAMILY PHYSICIAN Family Medicine
DX: R56.9 Unspecified convulsions (principal)
CPT/HCPCS: 95813